=== PATIENT | male | born 1940 ===

== ENCOUNTER → 2021-01-04 | Outpatient (CLI) | payer MEDICARE ==
[2021-01-04 18:29] LABS: Prostate Specific Antigen 0.097 ng/mL (0.000-4.000)
== END | disposition home or self-care (01) ==
LOC: LAB SHORT 11:03 → LAB 11:03 → LAB FUT 02-22 14:40
PROVIDERS: Urology
DX: C61 Malignant neoplasm of prostate (principal); I10 Essential (primary) hypertension
CPT/HCPCS: 36415; 84153; 84403